=== PATIENT | female | born 2000 | race Hispanic/Latino ===

== ENCOUNTER 2018-12-08 16:01 | Emergency (ER) | payer BC ==
[2018-12-08 17:39] LABS: BASOPHILS % (AUTO) 1.7 % (0.0-5.0); EOSINOPHILS % (AUTO) 0.3 % (0.0-8.0); HEMATOCRIT 37.8 % (36-48); LYMPHOCYTES % (AUTO) 10.9 % (21.0-51.0); MEAN CORPUSCULAR HEMOGLOBIN 30.3 pg (27.0-33.0); MEAN CORPUSCULAR HGB CONC 34.3 g/dL (32.0-36.0); MEAN CORPUSCULAR VOLUME 88.4 fL (80-100); MONOCYTES % (AUTO) 5.4 % (3.0-13.0); NEUTROPHILS % (AUTO) 81.7 % (40.0-77.0); PLATELET COUNT (AUTO) 374 K/uL (130-400); RED BLOOD CELL COUNT(AUTO) 4.28 MIL/uL (4.00-5.50); RED CELL DISTRIBUTION WIDTH 12.4 % (11.0-15.5); WHITE BLOOD COUNT (AUTO) 13.6 K/uL (4.8-10.8)
[2018-12-08] MEDS ORDERED: SODIUM CHLORIDE 0.9% 1000ML 1,000 ML IV ONE (17:53)
[2018-12-08] MEDS ORDERED: MORPHINE SULFATE 4 MG/1ML SYG ONE (17:54)
[2018-12-08] MEDS ORDERED: CLINDAMYCIN 600 MG/D5% WATER 50 ML IV ONE (17:54)
[2018-12-08] MEDS ORDERED: ONDANSETRON HCL 4 MG/2 ML VIAL ONE (17:54)
[2018-12-08 17:56] LABS: CREATININE 0.7 mg/dL (0.5-1.5); POTASSIUM 3.6 mmol/L (3.5-5.1)
[2018-12-08 18:01] LABS: ALBUMIN 4.1 g/dL (3.5-5.0); BILIRUBIN,TOTAL 0.6 mg/dL (0.2-1.0); TOTAL PROTEIN, SERUM 8.9 g/dL (6.0-8.3)
[2018-12-08] MEDS ORDERED: IOHEXOL-350 50ML VIAL IV ONE (18:21)
[2018-12-08] MEDS ORDERED: METHYLPREDNISOLONE SOD SUCC 125MG/2ML VIAL ONE (19:08)
== END 2018-12-08 19:40 | disposition home or self-care (01) ==
LOC: EDH 16:01
DX: J02.9 Acute pharyngitis, unspecified (principal)
CPT/HCPCS: 36415; 70491; 80053; 81025; 85025; 87040; 87804 ×2; 87880; 96365; 96366; 96375; 99285; J2270; J2405; J2930; J3490; J7030; Q9967